=== PATIENT | male | born 1970 | race Caucasian/White ===

== ENCOUNTER 2018-01-24 14:29 | Observation (INO) | payer BC ==
[~2018-01-24] VITALS: Ht 185.4 cm; Wt 107.9 kg
--- NOTE | ~2018-01-24 | EC ---
PATIENT:NICOLA MEDRANO DATE OF SERVICE: 01/24/18 SEX: M MEDICAL RECORD: [id number] DATE OF : 74 LOCATION:D.M2 D.213 AGE OF PATIENT: 47 ADMISSION DATE: 01/24/18 REFERRING PHYSICIAN: INTERPRETING PHYSICIAN: HALINA MATIAS MD ECHOCARDIOGRAM REPORT ECHO CHARGES 4 ECHO COMPLETE Date: 01/26 CLINICAL DIAGNOSIS: CHEST PAIN ECHOCARDIOGRAPHIC MEASUREMENTS (adult normal given) AC root (d.<3.7cm) 4.6 cm LV Septum d (<1.2 cm> 1.3 cm Valve Excursion 2.6 cm LV Septum (systole) 1.4 cm Left Atria (s.<4.0cm> 3.9 cm LVPW d(<1.2cm) 1.3 cm RV (d.<2.3cm) 4.5 cm LVPW (sytole) 1.7 cm LV diastole(<5.6CM) 4.8 cm MV E-F(>70mm/sec) cm LV systole 3.6 cm LVOT Diameter 2.5 cm MV exc.(>10mm) 1.7 cm Est.ejection fraction (50-75%) % DOPPLER: LVIT cm/sec A 63.0 cm/sec E 58.0 cm/sec LA cm/sec RVSP 17 mmHg LVOT 86 cm/sec AOP1/2T m/s Asc. Ao 109 cm/sec RVOT 87 cm/sec RA cm/sec PA 121 cm/sec AV Gradient Peak 4.79 mmHg AV Mean 2.37 mmHg AV Area 4.5 cm MV Gradient Peak 2.75 mmHg MV Mean 0.96 mmHg MV Area cm COMMENTS: Planning Lead: Brooke GILL Regional Property Manager: 1 Dr. Matias TAPE# PACS Pericardial Effusion N DATE OF SERVICE: FINDINGS: 1. Left ventricular chamber size is within normal limits. Left ventricular systolic function is normal. Overall ejection fraction estimated at 60%. 2. Left atrium is within normal limits at 3.9 cm. Right atrium and right ventricular chamber sizes are mildly dilated. 3. Valvular structures have normal structure and motion. 4. Doppler interrogation reveals no significant valvular insufficiency or stenosis. ECHOCARDIOGRAM REPORT [id number] NICOLA MEDRANO 5. No evidence of pericardial effusion or left ventricular thrombus. TRANSINT:[id number] Voice Confirmation ID: [id number] DOCUMENT ID: [id number] HALINA MATIAS MD at 0956 CC: [id number] DICTATION DATE: 01/26/18 1126 CASINO CASHIER MANAGER: 01/26/18 1412 DIS IN 01/27/18 [place] [id number] [place] [id number]
--- NOTE | ~2018-01-24 | HEMODYNAMI ---
PATIENT:NICOLA MEDRANO MEDICAL RECORD: [id number] : 74 [id number] ADMISSION DATE: 01/24/18 Generatedon:01/27/201813:22 Patient name: NICOLA MEDRANO Patient #: [id number] SSN: : 1970 Date of study: 01/27/2018 Page: Of Hemodynamic Procedure Report Patient Data Patient Demographics Procedure consent was obtained First Name: NICOLA Gender: Male Last Name: MARCELA : 1970 Middle Initial: H Age: 47 year(s) Patient #: [id number] Race: Unknown Additional ID: [id number] Contact details [address]: [address] [place] [address] rd State: [place] City: [place] Zip code: [address] Past Medical History Allergies: No known allergies Admission Admission Data Admission Date: 01/24/2018 Admission Time: 16:16 Room #: D.2138 Procedure Procedure Types Cath Procedure Diagnostic Procedure LHC LHC w/Coronaries Procedure Description Procedure Date Procedure Date: 01/27/2018 Procedure Start Time: 13:05 Procedure End Time: 13:21 Procedure Staff Name Function Jorge Abernathy MD Performing Physician Kinza Verde RT Monitor Lester Parker RN Nurse Roni Dick RT Scrub Procedure Data Cath Procedure Fluoroscopy Diagnostic fluoroscopy Total fluoroscopy Time: 3.2 time: 3.2 min min Diagnostic fluoroscopy Total fluoroscopy dose: 631 dose: 631 mGy mGy Contrast Material Contrast Material Type Amount (ml) Isovue 300 631 Entry Location Entry Primary Successful Side Size Upsize Upsize Entry Closure Strong ccessful Closure Location (Fr) 1 (Fr) 2 (Fr) Remarks Device Remarks Radial Right 6 Fr Mechanical artery Short Compression Estimated blood loss: 5 ml Diagnostic catheters Device Type Used For End Catheter Placement DIAGNOSTIC Renaldo 110cm LV Angiography 5Fr catheter ([id number]) DIAGNOSTIC Renaldo 110cm Right Coronary 5Fr catheter ([id number]) Angiography DIAGNOSTIC Renaldo 110cm Left Coronary 5Fr catheter (530365) Angiography DIAGNOSTIC Greenwood 110cm 5 Left Coronary Fr catheter ([id number]) Angiography Procedure Complications No complications Procedure Medications Medication Administration Route Dosage 0.9% NaCl I.V. 100 ml/hr Oxygen etCO2 Nasal cannula 2 l/min Heparin Flush Bag added to field 2 bags (1000units/500ml NS) Lidocaine 2% added to field 20 Radial Cocktail added to field 1 syringe (Verapomil 2mg/Nitro 400mcg/Heparin 1500units) Versed I.V. 2 mg Fentanyl I.V. 100 mcg Versed I.V. 1 mg Radial Cocktail I.A. 1 syringe (Verapomil 2mg/Nitro 400mcg/Heparin 1500units) Versed I.V. 1 mg Hemodynamics Rest Heart Rate: 59 (bpm) Pressure Samples Time Site Value (mmHg) Purpose Heart Use Rate(bpm) 13:11 LV 128/7,20 EDP 68 13:12 AO 126/92(106) Pullback 69 13:12 LV 139/9,17 Pullback 69 Gradients Valve Time Site 1 Site 2 Mean SEP/DFP Peak To Heart Use (mmHg) (sec/min) Peak Rate (mmHg) (bpm) Aortic 13:12 LV AO 13 20 13 69 139/9,17 126/92(106) Calculations Valve P-P Mean Valve Index Valve Source Name Gradient Area Flow (cm2) Aortic 13 13 13 13 Snapshots Pre Cath Intra NCS Post Cath Vital Signs Time Heart Resp SPO2 etCO2 NIBP (mmHg) Rhythm Pain Sedation Rate (ipm) (%) (mmHg) Status Level (bpm) 12:56:46 62 13 100 41.9 125/85(106) NSR 0 (11) 10(A) , No pain 13:01:33 59 15 98 43.3 126/82(100) NSR 0 (11) 10(A) , No pain 13:06:21 58 18 97 44.1 124/82(100) NSR 0 (11) 10(A) , No pain 13:11:08 64 18 98 41.9 119/80(101) NSR 0 (11) 9(A) , No pain 13:15:53 69 19 93 41.9 118/80(103) NSR 0 (11) 9(A) , No pain 13:20:38 63 10 96 44.1 112/77(98) NSR 0 (11) 9(A) , No pain Medications Time Medication Route Dose Verified Delivered Reason Notes Effectiveness by by 12:54:54 0.9% NaCl I.V. 100 Lester Lester Per ml/hr Keith Parker physician RN RN 12:55:04 Oxygen etCO2 2 l/min Lester Lester Per Nasal Keith rosado cannula RN RN 12:55:15 Heparin Flush added 2 bags Lester Lester used for Bag to Lorigan Keith procedure (1000units/500ml field RN RN NS) 12:55:26 Lidocaine 2% added 20ml Lester Lester for local to vial Lorigan Lorigan anesthetic field RN RN 12:55:39 Radial Cocktail added 1 Lester Lester used for (Verapomil to syringe Lorigan Keith procedure 2mg/Nitro field RN RN 400mcg/Heparin 1500units) 13:04:05 Versed I.V. 2 mg Lester Lester for sedation Keith Parker RN RN 13:04:13 Fentanyl I.V. 100 mcg Lester Lester for sedation Keith Parker RN RN 13:07:20 Versed I.V. 1 mg Lester Lester for sedation Keith Parker RN RN 13:08:49 Radial Cocktail I.A. 1 Lester Jorge for (Verapomil syringe Keith Abernathy MD vasodilation 2mg/Nitro RN 400mcg/Heparin 1500units) 13:11:38 Versed I.V. 1 mg Lester Lester for sedation Keith Parker RN patternmaker wood Log Time Note 12:30:29 Time tracking: Regular hours (M-F 7:00 - 5:00) 12:30:33 Plan of Care:Hemodynamics will remain stable., Cardiac rhythm will remain stable., Comfort level will be maintained., Respiratory function will remain adequate., Patient/ family verbilizes understanding of procedure., Procedure tolerated without complication., Recovers from procedure without complications.. 12:34:30 Kinza Verde RT(R) sent for patient. Start room use. 12:45:25 Patient received from Pre/Post Procedure Room to CCL 1 Alert and oriented. Tansferred to table in Supine position. 12:54:54 0.9% NaCl 100 ml/hr I.V. was administered by Lester Parker RN; Per physician; 12:55:04 Oxygen 2 l/min etCO2 Nasal cannula was administered by Lester Parker RN; Per physician; 12:55:15 Heparin Flush Bag (1000units/500ml NS) 2 bags added to field was administered by Lester Parker RN; used for procedure; 12:55:26 Lidocaine 2% 20ml vial added to field was administered by Lester Parker RN; for local anesthetic; 12:55:39 Radial Cocktail (Verapomil 2mg/Nitro 400mcg/Heparin 1500units) 1 syringe added to field was administered by Lester Parker RN; used for procedure; 12:55:46 Vital chart was started 12:58:35 Warm blankets applied, and willie hugger turned on for patient comfort. 12:58:36 Correct patient and procedure confirmed by team. 12:58:37 Signed procedure consent form obtained from patient. 12:58:38 ECG and BP/O2 sat monitors applied to patient. 12:59:26 Baseline sample Acquired. 12:59:29 Rhythm: sinus rhythm 12:59:30 Full Disclosure recording started 12:59:49 H&P Date Dictated: 01/26/2018 Within 30 days and on chart.. 12:59:51 Pre-procedure instructions explained to patient. 12:59:51 Pre-op teaching completed and patient verbalized understanding. 12:59:53 Family in patients room. 12:59:55 Patient NPO since Midnight. 13:00:02 Patient allergic to No known allergies 13:00:04 Is the patient allergic to Iodine/contrast media? No. 13:00:07 Is patient on blood thinner?No 13:00:08 Patient diabetic? No. 13:00:11 Previous problem with sedation/anesthesia? No ? 13:00:12 Snore? Yes 13:00:14 Sleep apnea? No 13:00:16 Deviated septum? No 13:00:16 Opens mouth fully? Yes 13:00:17 Sticks out tongue? Yes 13:00:18 Airway obstruction? No ? 13:00:20 Dentures? No ? 13:00:23 Pre procedure: right dorsailis pedis pulse 2+ Normal; easily identifiable; not easily obliterated 13:00:25 Modified Elpidio's test Ulnar < 7 seconds 13:00:27 Patient pain scale 0/10 ?. 13:00:33 IV patent on arrival in right forearm with 0.9% NaCl at [facility]. 13:00:37 Lab results completed and on chart. 13:00:43 Right Radial & Right Groin area was prepped with chlora-prep and draped in sterile fashion 13:00:44 Alarms reviewed by R. N. 13:00:45 Sharps counted by scrub and verified by R.N. 13:00:47 Use device set Radial Dx or PCI 13:00:48 ACIST Syringe (38270) opened to sterile field. 13:00:49 Medline Cath Pack ([id number]) opened to sterile field. 13:00:49 Bag Decanter (2002S) opened to sterile field. 13:00:50 DIAGNOSTIC WIRE .035 260cm J wire (001989) opened to sterile field. 13:00:51 ACIST Hand Control (12722) opened to sterile field. 13:00:51 ACIST Manifold (29101) opened to sterile field. 13:00:52 Tegaderm 4 x 4 (1626W) opened to sterile field. 13:00:53 MBrace Wrist Support ([id number]) opened to sterile field. 13:01:06 SHEATH 6Fr Prelude Radial ([id number]) opened to sterile field. 13:02:23 Final Timeout: patient, procedure, and site verified with staff and physician. All members of the team are in agreement. 13:02:28 Right Radial site verified by team. 13:02:29 Physical assessment completed. ASA score P 2 - A patient with mild systemic disease as per Jorge Abernathy MD. 13:02:32 Sedation plan: IV Moderate Sedation Medication:Versed, Fentanyl 13:04:05 Versed 2 mg I.V. was administered by Lester Parker RN; for sedation; 13:04:13 Fentanyl 100 mcg I.V. was administered by Lester Parker RN; for sedation; 13:04:57 Procedure started. 13:05:03 Local anesthetic to right radial artery with Lidocaine 2% by Jorge Abernathy MD.INITIAL ACCESS ONLY 13:07:20 Versed 1 mg I.V. was administered by Lester Parker RN; for sedation; 13:08:42 A 6 Fr Short sheath was inserted into the Right Radial artery 13:08:49 Radial Cocktail (Verapomil 2mg/Nitro 400mcg/Heparin 1500units) 1 syringe I.A. was administered by Jorge Abernathy MD; for vasodilation; 13:10:31 A DIAGNOSTIC Renaldo 110cm 5Fr catheter (574486) was advanced over the wire and used for LV Angiography. 13:11:38 Versed 1 mg I.V. was administered by Lester Parker RN; for sedation; 13:11:43 LV gram done using ASENCIO 13:11:46 Injector settings: Ml/sec: 5, Volume: 15, 13:12:01 EF : 50 % 13:12:42 LV hemodynamics recorded. 13:12:52 A DIAGNOSTIC Renaldo 110cm 5Fr catheter (810802) was advanced over the wire and used for Right Coronary Angiography. 13:15:24 A DIAGNOSTIC Renaldo 110cm 5Fr catheter (665621) was advanced over the wire and used for Left Coronary Angiography.removed, unable to visualize LAD 13:15:40 A DIAGNOSTIC Greenwood 110cm 5 Fr catheter (782496) was advanced over the wire and used for Left Coronary Angiography. 13:17:08 Catheter removed. 13:17:30 Sheath removed intact; hemostasis achieved with Mechanical Compression to the Right Radial artery. 13:17:32 Procedure ended.(Physican Out) 13:17:52 TR BAND Standard ([id number]) opened to sterile field. 13:17:57 Fluoroscopy time 03.20 minutes. 13:18:01 Fluoroscopy dose: 631 mGy 13:18:01 Flurop Dose total: 631 13:18:07 Contrast amount:Isovue 300 631ml. 13:18:08 Sharps counted by scrub and verified by R.N. 13:18:17 TR band inflated with 12cc of air. 13:18:18 Insertion/operative site no bleeding no hematoma. 13:18:46 Post right radial artery:stable, clean and dry 13:18:48 Post Procedure Pulses reassessed and unchanged 13:18:51 Post-procedure physical assessment completed. ASA score P 2 - A patient with mild systemic disease as per Jorge Abernathy MD. 13:18:53 Post procedure rhythm: unchanged. 13:19:16 Estimated blood loss: 5 ml 13:19:18 Post procedure instruction explained to patient.Patient verbalizes understanding. 13:19:18 Patient needs reinforcement of post procedure teaching. 13:19:35 Procedure Complication : No complications 13:19:38 See physician's report for complete and final results. 13:20:40 Procedure and supply charges have been captured, reviewed, submitted and are correct. 13:20:54 Vital chart was stopped 13:20:56 Report given to PCU. 13:21:02 Patient transfered to PCU with Bed. 13:21:05 Procedure ended. 13:21:05 Full Disclosure recording stopped 13:21:41 End room use (Document Last) Device Usage Item Name Manufacture Quantity Catalog Number Hospital Part Current M inimal Lot# / Charge Number Stock Stock Serial# Code ACIST Syringe Acist 1 75884 560520 748747 237091 2 0 (07425) [employer] Medline Cath Cardinal 1 [id number] 70455 954926 5 [facility] ([id number]) Bag Decanter Microtek 1 2001S 062676 47189 843874 5 (2001S) Medical Inc. DIAGNOSTIC WIRE St Joshua 1 062747 108081 738244 489863 3 0 .035 260cm J wire (537700) ACIST Hand Acist 1 45599 767723 846081 114986 5 Control (62722) [employer] ACIST Manifold Acist 1 03099 516738 833002 534363 5 (40812) [employer] Inc Tegaderm 4 x 4 3M 1 1626W 163273 064710 281984 5 (1626W) MBrace Wrist Advanced 1 140-0250-00 435300 29530 850190 5 Support Vascular ([id number]) Dynamics SHEATH 6Fr Merit 1 [id number] 301338 664118 419980 5 Prelude Radial Medical ([id number]) DIAGNOSTIC Terumo 1 40-5023 416347 104350 407830 5 Renaldo 110cm 5Fr catheter (623203) DIAGNOSTIC Terumo 1 40-5013 029556 553311 274173 5 Greenwood 110cm 5 Fr catheter (211035) TR BAND Terumo 1 [id number] 164885 458924 675001 4 0 Standard ([id number]) Signature Audit [place] Stage Time Signature Unsigned Intra-Procedure 01/27/2018 Kinza 1:21:58 PM Counts RT(R) Signatures Monitor : Kinza Signature : Counts RT Date : Time : [address] [place] [address]
[2018-01-24 15:15] LABS: INR 0.94 (0.85-1.17); PROTIME 12.2 SECONDS (11.6-15.0)
[2018-01-24 15:16] LABS: APTT 29.8 SECONDS (22.8-39.4)
[2018-01-24 15:17] LABS: D-DIMER-QUANTITATIVE < 0.27 ug/mLFEU (0.20-0.54)
[2018-01-24 15:22] LABS: BASOPHILS 0.5 % (0-2); EOSINOPHILS 2.6 % (0-7); HEMOGLOBIN 15.4 g/dL (13.5-17.5); IMMATURE GRANULOCYTES 0.3 % (0-5); LYMPHOCYTES 39.2 % (15-50); MCV 94.2 fL (80.0-100.0); MEAN PLATELET VOLUME 11.1 fL (7.4-10.4); MONOCYTES 7.8 % (2-11); NEUTROPHILS 49.6 % (40-80); PLATELET COUNT 184 10x3/uL (130-400); RBC 4.67 10x6/uL (4.20-6.10); RDW 12.7 % (11.5-14.5); WBC 7.6 10x3/uL (4.8-10.8)
[2018-01-24 15:29] LABS: ALBUMIN 4.1 g/dL (3.4-5.0); ALKALINE PHOSPHATASE 65 U/L (46-116); ALT (SGPT) 60 U/L (10-68); BILIRUBIN - TOTAL 0.46 mg/dL (0.2-1.3); CALC OSMOLALITY 276 mosm/kg (275-300); CALCIUM 8.9 mg/dL (8.5-10.1); CARBON DIOXIDE 28.5 mmol/L (21.0-32.0); CHLORIDE - SERUM 102 mmol/L (98-107); CREATININE - SERUM 0.9 mg/dL (0.6-1.3); GLUCOSE 83 mg/dL (74-106); POTASSIUM - SERUM 4.5 mmol/L (3.5-5.1); PROTEIN - SERUM 8.3 g/dL (6.4-8.2); SODIUM 139 mmol/L (136-145); UREA NITROGEN 12 mg/dL (7-18); eGFR NON AFRICAN AMERICAN > 90 mL/min (90-120)
[2018-01-24 15:37] LABS: CHOL - HDL RATIO 3.5 ratio (2.3-4.9); CHOLESTEROL, TOTAL 198 mg/dL (0-200); CKMB 8.8 U/L (0.0-3.6); HDL CHOLESTEROL 56 mg/dL (32-96); LDL CHOLESTEROL 86 mg/dL (0-100); LDL-HDL RATIO 1.5 ratio (1.5-3.5); LIPASE 103 U/L (73-393); PRO BNP 38 pg/mL (0-125); TRIGLYCERIDE 280 mg/dL (30-200)
[2018-01-24 15:45] LABS: CREATINE KINASE 1296 UL (21-232); TROPONIN-I < 0.017 ng/mL (0.000-0.060)
[2018-01-24 16:10] LABS: APPEARANCE CLEAR (CLEAR); COLOR YELLOW (YELLOW)
[2018-01-24 16:11] LABS: BILIRUBIN NEGATIVE (NEGATIVE); GLUCOSE NEGATIVE (NEGATIVE); KETONE NEGATIVE (NEGATIVE); NITRITE NEGATIVE (NEGATIVE); PROTEIN NEGATIVE (NEGATIVE); SPECIFIC GRAVITY 1.015 (1.005-1.020); UROBILINOGEN NORMAL (NORMAL)
[2018-01-24 16:18] LABS: UDS - AMPHET NEGATIVE QUAL (NEGATIVE); UDS - BARB NEGATIVE QUAL (NEGATIVE); UDS - BENZO NEGATIVE QUAL (NEGATIVE); UDS - COCAINE NEGATIVE QUAL (NEGATIVE); UDS - OPIATE NEGATIVE QUAL (NEGATIVE); UDS - PCP NEGATIVE QUAL (NEGATIVE); UDS - THC NEGATIVE QUAL (NEGATIVE)
[2018-01-24 19:55] VITALS: Ht 185.4 cm; Wt 107.9 kg
[2018-01-24 20:00] VITALS: BP 106/69
[2018-01-25] VITALS (7 sets, daily range): BP systolic 83–121; BP diastolic 52–76
[2018-01-25 17:19] LABS: CREATINE KINASE 567 UL (21-232); TROPONIN-I < 0.017 ng/mL (0.000-0.060)
[2018-01-25 21:06] LABS: CKMB 2.5 U/L (0.0-3.6); CREATINE KINASE 529 UL (21-232)
[2018-01-25 21:14] LABS: TROPONIN-I < 0.017 ng/mL (0.000-0.060)
[2018-01-26] VITALS: BP 115/60
[2018-01-26 04:00] VITALS: BP 116/44
[2018-01-26 05:19] LABS: ALBUMIN 3.4 g/dL (3.4-5.0); ALKALINE PHOSPHATASE 52 U/L (46-116); ALT (SGPT) 47 U/L (10-68); BILIRUBIN - TOTAL 0.29 mg/dL (0.2-1.3); CALC OSMOLALITY 278 mosm/kg (275-300); CALCIUM 8.4 mg/dL (8.5-10.1); CARBON DIOXIDE 30.1 mmol/L (21.0-32.0); CHLORIDE - SERUM 105 mmol/L (98-107); CREATINE KINASE 398 UL (21-232); CREATININE - SERUM 0.9 mg/dL (0.6-1.3); GLUCOSE 84 mg/dL (74-106); MAGNESIUM - SERUM 2.3 mg/dL (1.8-2.4); PHOSPHOROUS 4.3 mg/dL (2.5-4.9); PRO BNP 38 pg/mL (0-125); SODIUM 141 mmol/L (136-145); UREA NITROGEN 11 mg/dL (7-18); eGFR NON AFRICAN AMERICAN > 90 mL/min (90-120)
[2018-01-26 05:35] LABS: ERYTHROCYTE SEDIMENTATION RATE 7 mm/hr (0-15)
[2018-01-26 05:53] LABS: CKMB 1.9 U/L (0.0-3.6)
[2018-01-26 05:55] LABS: C-REACTIVE PROTEIN 0.2 mg/dL (0.0-0.9); TROPONIN-I < 0.017 ng/mL (0.000-0.060)
[2018-01-26 08:07] VITALS: BP 126/86
[2018-01-26 10:46] VITALS: BP 119/81
[2018-01-26 15:33] VITALS: BP 131/76
[2018-01-26 19:59] VITALS: BP 114/73
[2018-01-27] VITALS: BP 120/70
[2018-01-27 04:00] VITALS: BP 104/73
[2018-01-27 08:30] LABS: BASOPHILS 0.5 % (0-2); EOSINOPHILS 1.9 % (0-7); HEMATOCRIT 43.9 % (42.0-54.0); HEMOGLOBIN 15.2 g/dL (13.5-17.5); IMMATURE GRANULOCYTES 0.3 % (0-5); LYMPHOCYTES 34.4 % (15-50); MCH 32.6 pg (26.0-34.0); MCHC 34.6 g/dL (31.0-37.0); MCV 94.2 fL (80.0-100.0); MEAN PLATELET VOLUME 10.5 fL (7.4-10.4); MONOCYTES 8.1 % (2-11); NEUTROPHILS 54.8 % (40-80); PLATELET COUNT 177 10x3/uL (130-400); RBC 4.66 10x6/uL (4.20-6.10); RDW 12.8 % (11.5-14.5); WBC 6.2 10x3/uL (4.8-10.8)
[2018-01-27 08:35] VITALS: BP 119/73
[2018-01-27 08:54] LABS: CALC OSMOLALITY 282 mosm/kg (275-300); CALCIUM 8.9 mg/dL (8.5-10.1); CARBON DIOXIDE 29.3 mmol/L (21.0-32.0); CHLORIDE - SERUM 104 mmol/L (98-107); CREATININE - SERUM 0.9 mg/dL (0.6-1.3); POTASSIUM - SERUM 4.1 mmol/L (3.5-5.1); SODIUM 141 mmol/L (136-145); UREA NITROGEN 12 mg/dL (7-18); eGFR NON AFRICAN AMERICAN > 90 mL/min (90-120)
[2018-01-27 08:55] LABS: GLUCOSE 130 mg/dL (74-106)
[2018-01-27 13:01] VITALS: BP 100/66
[2018-01-27] MEDS ORDERED: KLONOPIN1 MG PO ×4 (13:45→13:50)
[2018-01-27] MEDS ORDERED: WELLBUTRIN SR150 MG PO (15:35)
== END 2018-01-27 17:00 | disposition home or self-care (01) ==
LOC: D.ER 14:29 → D.M2 16:16 → OBSVTIME 16:16 → D.EDHOLD 16:16 → D.M2 18:07
PROVIDERS: Family Medicine; Internal Medicine Cardiovascular Disease
DX: R07.9 Chest pain, unspecified (principal); K21.9 Gastro-esophageal reflux disease without esophagitis; F17.203 Nicotine dependence unspecified, with withdrawal; R00.1 Bradycardia, unspecified; F40.240 Claustrophobia; F41.8 Other specified anxiety disorders